=== PATIENT | female | born 1995 | race African-American/Black ===

== ENCOUNTER 2017-02-22 21:35 | Emergency (ER) | payer SELFPAY ==
[2017-02-22 21:37] VITALS: BP 143/78; PULSE 77; RESP 22; TEMP 98.7; O2SAT 97
--- NOTE | 2017-02-22 23:05 | PD ---
HPI Chief Complaint: Laceration/Skin Injury Time Seen by Provider: 23:05 Travel History International Travel<30 days: No Contact w/Intl Traveler<30days: No Traveled to known affect area: No History of Present Illness HPI 21-year-old female with no significant medical history presents to the emergency department for evaluation of a laceration to her left anterior forearm. Patient has been drinking this evening and was at a [employer]. She struck a window that broke, resulting in her laceration. Patient reports minimal pain at the site. Denies any alterations in sensation or limitations in range of motion. Patient has no other symptoms to report. PFSH Past Medical History Medical History: Denies Significant Hx ?: Not Social History Alcohol Use: Yes Tobacco Use: No Substance Use: No Allergies-Medications (Allergen,Severity, Reaction): Coded Allergies: No Known Allergies (Unverified , 02/22/17) Reported Meds & Prescriptions Reported Meds & Active Scripts Active Ibuprofen 600 Mg Tab 600 Mg PO Q8HR PRN Keflex (Cephalexin) 500 Mg Cap 500 Mg PO Q6H 5 Days Review of Systems Except as stated in HPI: all other systems reviewed are Neg Physical Exam Narrative GENERAL: Well-nourished female patient, in no acute distress SKIN: Focused skin assessment warm/dry. 12 cm curvilinear linear laceration on the distal anterior left forearm. Bleeding is controlled..The muscle belly was spared. It appears that the profundus longus tendon is lacerated distally. I am unable to visualize the proximal piece of this. HEAD: Atraumatic. Normocephalic. EYES: Pupils equal and round. No scleral icterus. No injection or drainage. ENT: No nasal bleeding or discharge. Mucous membranes pink and moist. NECK: Trachea midline. No JVD. CARDIOVASCULAR: Regular rate and rhythm. No murmur appreciated. RESPIRATORY: No accessory muscle use. Clear to auscultation. Breath sounds equal bilaterally. GASTROINTESTINAL: Abdomen soft, non-tender, nondistended. Hepatic and splenic margins not palpable. MUSCULOSKELETAL: No obvious deformities. No clubbing. No cyanosis. No edema. 5+ strength equal bilateral extremities. Patient has full flexion and extension of the wrist and digits of the affected extremity. Sensation intact distal affected extremity. Cap refill is within normal limits. NEUROLOGICAL: Awake and alert. No obvious cranial nerve deficits. Motor grossly within normal limits. Normal speech. Data Data Last Documented VS Vital Signs Date Time Temp Pulse Resp B/P Pulse Ox O2 Delivery O2 Flow Rate FiO2 02/22/17 21:37 98.7 77 22 143/78 97 Room Air Orders Forearm (2vws) (02/22/17 ) [facility] Medical Decision Making Medical Screen Exam Complete: Yes Emergency Medical Condition: Yes Medical Record Reviewed: Yes Differential Diagnosis Laceration superficial versus deep versus foreign body versus abrasion versus avulsion Narrative Course 21-year-old female presents to the department for evaluation of a laceration to the left forearm. Patient has no limitations in range of motion of the wrist or digits of the affected extremity. Sensation is intact. This is a relatively superficial laceration when compared to the mechanism of injury and the potential for serious injury in the area that was lacerated. It is approximated without difficulty. Patient is placed in a wrist splint to reduce mobility while the laceration heals. She is encouraged follow-up with hand specialist. She agrees to return immediately with any acute worsening of symptoms. Procedures Procedure Narrative LACERATION LOCATION: Left anterior wrist LENGTH: 12 cm NUMBER OF STITCHES/JEANIE: 7 horizontal mattress, 3 single interrupted REPAIR: The area of the laceration was prepped with Betadine and sterilely draped. The laceration was infiltrated with 1% lidocaine with epinephrine. The wound was copiously irrigated and explored without evidence of foreign body , tendon injury or neurovascular injury. The wound was closed using 4-0 Prolene and 4-0 Ethilon suture this was a [single layer repair. A sterile dressing was applied. The patient was advised to keep the dressing clean and dry. Patient tolerated the procedure well. Diagnosis Primary Impression: Laceration of arm Qualified Code: S41.112A - Laceration of arm, left, initial encounter Referrals: Tomas Clements MD,Jeanine Villanueva MD Primary Care Physician Patient Instructions: Acute Wound Care (ED), General Instructions Departure Forms: Tests/Procedures, Work Release Enter return to work date: February 24, 2017 Additional Instructions: Keep the area clean and dry You may shower Seek hand specialty evaluation Pat dry and apply Polysporin ointment before you apply a nonadherent dressing Sutures are to be removed in 10 days. This can be done at the emergency department or your primary care provider's office Elevate to reduce pain and swelling Return immediately with any acute worsening of symptoms Med/Other Pt SpecificInfo: Prescription(s) given Scripts Ibuprofen 600 Mg [id number] Mg PO Q8HR PRN (PAIN) #30 TAB Ref 0 Prov:Myrna Norton 02/23/17 Cephalexin (Keflex)500 Mg [id number] Mg PO Q6H 5 Days Ref 0 Prov:Myrna Norton 02/23/17 Disposition: 01 DISCHARGE HOME Condition: Stable Myrna Norton February 22, 2017 23:05
--- NOTE | 2017-02-22 23:38 | RADRPT ---
EXAM DATE/TIME: 02/22/2017 23:24 [facility] COMPARISON: No previous studies available for comparison. INDICATIONS : Left distal forearm laceration from hitting a wall. MEDICAL HISTORY : None. SURGICAL HISTORY : None. ENCOUNTER: Initial ACUITY: 1 day PAIN SCORE: 8/10 LOCATION: Left distal Forearm FINDINGS: Two view examination of the left forearm demonstrates no evidence of fracture or dislocation. Bony m ineralization is normal. The soft tissue structures are intact. No radiopaque foreign body. CONCLUSION: Unremarkable examination of the left forearm. Herb Joshi Jr., MD on February 22, 2017 at 23:36 Board Certified Radiologist. This report was verified electronically.
[2017-02-23] MEDS ORDERED: CEPH-460 PO (00:30)
[2017-02-23] MEDS ORDERED: IBUP-232 PO (00:30)
== END 2017-02-23 00:59 | disposition home or self-care (01) ==
LOC: NEPK 21:35
DX: S41.112A Laceration without foreign body of left upper arm, initial encounter (principal); W25.XXXA Contact with sharp glass, initial encounter; Y92.89 Other specified places as the place of occurrence of the external cause
CPT/HCPCS: 12004; 73090

== ENCOUNTER 2017-02-25 13:35 | Emergency (ER) | payer SELFPAY ==
[~2017-02-25] VITALS: Ht 175.3 cm; Wt 68.0 kg
[~2017-02-25 13:35] MED LIST: CEPH-460 PO; IBUP-232 PO
[2017-02-25 13:38] VITALS: BP 113/81; PULSE 58; RESP 18; TEMP 99; O2SAT 100
--- NOTE | 2017-02-25 13:52 | PD ---
Physical Exam Date Seen by Provider: February 25, 2017 Time Seen by Provider: 13:50 Narrative 21 year old female presents to the emergency department for recheck of stitches to her left wrist she had placed on Thursday night. No fevers. Vital signs reviewed. Patient awaiting bed placement. Data Data Last Documented VS Vital Signs Date Time Temp Pulse Resp B/P Pulse Ox O2 Delivery O2 Flow Rate FiO2 02/25/17 13:38 99.0 58 18 113/81 100 MDM Supervised Visit with KEENAN: Yesenia Klein February 25, 2017 13:52
[2017-02-25] MEDS ORDERED: IBUP800T23 PO (14:10)
[2017-02-25] MEDS ORDERED: CEPH-460 PO (14:10)
--- NOTE | 2017-02-25 14:12 | PD ---
HPI Chief Complaint: Skin Problem Time Seen by Provider: 14:06 Travel History International Travel<30 days: No Contact w/Intl Traveler<30days: No History of Present Illness HPI 21-year-old female presents to emergency department requesting stitches and laceration to her left wrist be rechecked. She punched a glass window on Thursday and was here for laceration repair. She reports pain and swelling to the wrist. She says she inks a stitch came out and there is an area of the laceration that is a little more open than other areas. Reports minimal amount of bright red drainage from the laceration site. Has been using Neosporin to the site. Denies fever, vomiting. Denies paresthesias, loss of sensation to the affected extremity. Has been taking Tylenol with minimal relief of symptoms. Has not taken any medications or tried any treatments to alleviate her symptoms. No known allergies. Has no other medical complaints. No other modifying factors or associated signs and symptoms. PFSH Past Medical History Diminished Hearing: No Social History Alcohol Use: Yes Tobacco Use: No Substance Use: No Allergies-Medications (Allergen,Severity, Reaction): Coded Allergies: No Known Allergies (Unverified , 02/25/17) Reported Meds & Prescriptions Reported Meds & Active Scripts Active Ibuprofen 800 Mg Tab 800 Mg PO Q6HR PRN Keflex (Cephalexin) 500 Mg Cap 500 Mg PO Q6H 7 Days Ibuprofen 600 Mg Tab 600 Mg PO Q8HR PRN Keflex (Cephalexin) 500 Mg Cap 500 Mg PO Q6H 5 Days Review of Systems Except as stated in HPI: all other systems reviewed are Neg Physical Exam Narrative GENERAL: Well-nourished, well-developed female patient, in no acute distress; afebrile, nontoxic-appearing SKIN: Warm and dry. Left anterior wrist with L-shaped laceration that is well approximated with sutures intact; there is very minimal erythema surrounding the laceration site; the wrist is mildly edematous; without drainage. Left upper extremity supple and non-tense with 2+ radial pulses and sensory intact. HEAD: Atraumatic. Normocephalic. EYES: Pupils equal and round. No scleral icterus. No injection or drainage. ENT: Mucosa pink and moist. Airway patent. NECK: Trachea midline. CARDIOVASCULAR: Regular rate. RESPIRATORY: No accessory muscle use. GASTROINTESTINAL: Flat. MUSCULOSKELETAL: No obvious deformities. No clubbing. No cyanosis. No edema. NEUROLOGICAL: Awake and alert. Oriented 3. No obvious cranial nerve deficits. Motor grossly within normal limits. Normal speech. PSYCHIATRIC: Appropriate mood and affect; insight and judgment normal. Data Data Last Documented VS Vital Signs Date Time Temp Pulse Resp B/P Pulse Ox O2 Delivery O2 Flow Rate FiO2 02/25/17 13:38 99.0 58 18 113/81 100 MDM Medical Decision Making Medical Screen Exam Complete: Yes Emergency Medical Condition: Yes Medical Record Reviewed: Yes Differential Diagnosis Wound recheck, suture recheck, wound infection Narrative Course 21-year-old female presents for recheck of her laceration to left wrist. She was here on Thursday and the laceration was repaired. Sutures are intact and the wound is well approximated. There is very minimal erythema surrounding the laceration site, most likely consistent with the wound and healing. No drainage. The wrist is with minimal edema. I did review the patient's medical records and she was prescribed Keflex and ibuprofen. She did not fill the prescriptions and does not know what she did with them. I will re-prescribe Keflex and ibuprofen. Instructed patient to fill the prescriptions. Keflex and ibuprofen prescribed for home. Patient verbalizes understanding and agreement with treatment plan. Patient is medically cleared and stable for discharge. Discussed reasons to return to the emergency department. Instructed patient to follow up with primary care provider. Patient agrees with treatment plan. The patients vital signs are stable and the patient is stable for outpatient follow-up and treatment. Patient discharged home, stable and in no acute distress. Diagnosis Primary Impression: Encounter for wound re-check Referrals: Primary Care Physician Patient Instructions: Acute Wound Care (ED), Care For Your Stitches (ED), General Instructions, Laceration (ED) Departure Forms: Tests/Procedures, Work Release Enter return to work date: March 02, 2017 Additional Instructions: Keep area clean and dry Refer to the discharge instructions for Care for your stitches Limit left wrist activity to decrease risk of sutures coming undone done; use sling for support and to decrease activity Ibuprofen or Tylenol as directed and as needed for pain and inflammation Ice pack to area as needed to decrease pain Return to the emergency department in 7-10 days from injury for suture removal Follow up with primary care provider Return to the emergency department immediately with worsening of symptoms, particularly if reddened streaks up or down the affected extremity from the suture site, fever, numbness/tingling in the affected extremity, loss of sensation in the affected extremity, severe swelling of the affected Med/Other Pt SpecificInfo: Prescription(s) given Scripts Ibuprofen 800 Mg [id number] Mg PO Q6HR PRN (PAIN) #30 TAB Ref 0 Prov:Alexia Handley 02/25/17 Cephalexin (Keflex)500 Mg [id number] Mg PO Q6H 7 Days Ref 0 Prov:Alexia Handley 02/25/17 Disposition: 01 DISCHARGE HOME Condition: Stable Alexia Handley February 25, 2017 14:12
== END 2017-02-25 14:22 | disposition home or self-care (01) ==
LOC: NEPK 13:35
DX: S61.512D Laceration without foreign body of left wrist, subsequent encounter (principal); W25.XXXD Contact with sharp glass, subsequent encounter
CPT/HCPCS: 99282

== ENCOUNTER 2017-03-09 09:49 | Emergency (ER) | payer SELFPAY ==
[~2017-03-09 09:49] MED LIST changes: +IBUP800T23 PO
[2017-03-09 09:50] VITALS: BP 121/70; PULSE 62; RESP 14; TEMP 98.2; O2SAT 100
--- NOTE | 2017-03-09 10:35 | PD ---
HPI Chief Complaint: Wound/Suture/Staple Re-Check Time Seen by Provider: 10:20 Travel History International Travel<30 days: No Contact w/Intl Traveler<30days: No Traveled to known affect area: No History of Present Illness HPI 21-year-old female presents emergency department for suture removal. Patient sustained a laceration to her left wrist 15 days ago and was sutured here in the emergency department. She denies any purulent drainage from the wound, pain or erythema. PFSH Past Medical History Medical History: Denies Significant Hx Diminished Hearing: No Social History Alcohol Use: Yes Tobacco Use: No Substance Use: No Allergies-Medications (Allergen,Severity, Reaction): Coded Allergies: No Known Allergies (Unverified , 02/25/17) Reported Meds & Prescriptions Reported Meds & Active Scripts Active Ibuprofen 800 Mg Tab 800 Mg PO Q6HR PRN Keflex (Cephalexin) 500 Mg Cap 500 Mg PO Q6H 7 Days Ibuprofen 600 Mg Tab 600 Mg PO Q8HR PRN Keflex (Cephalexin) 500 Mg Cap 500 Mg PO Q6H 5 Days Review of Systems Except as stated in HPI: all other systems reviewed are Neg Physical Exam Narrative GENERAL: Well-nourished, well-developed patient. SKIN: Focused skin assessment warm/dry. Left wrist 8 sutures present. Wound well approximated and healing. No erythema or swelling. No lymphangitis. HEAD: Normocephalic. EYES: No scleral icterus. No injection or drainage. NECK: Supple, trachea midline. No JVD or lymphadenopathy. CARDIOVASCULAR: Regular rate and rhythm without murmurs, gallops, or rubs. RESPIRATORY: Breath sounds equal bilaterally. No accessory muscle use. GASTROINTESTINAL: Abdomen soft, non-tender, nondistended. MUSCULOSKELETAL: No cyanosis, or edema. BACK: Nontender without obvious deformity. No CVA tenderness. Data Data Last Documented VS Vital Signs Date Time Temp Pulse Resp B/P Pulse Ox O2 Delivery O2 Flow Rate FiO2 03/09/17 09:50 98.2 62 14 121/70 100 MDM Medical Decision Making Medical Screen Exam Complete: Yes Emergency Medical Condition: Yes Differential Diagnosis Suture removal, wound check, wound infection Narrative Course 21-year-old female presents emergency department for suture removal of her left wrist. She sustained a laceration to the left wrist 15 days ago and was sutured here in emergency department. She denies any complaints of pain, drainage from wound, fever, chills. Diagnosis Primary Impression: Visit for suture removal Referrals: Primary Care Physician Patient Instructions: Acute Wound Care (ED), General Instructions Departure Forms: Tests/Procedures, Work Release Enter return to work date: March 10, 2017 Disposition: 01 DISCHARGE HOME Condition: Stable Silva Lloyd March 09, 2017 10:35
== END 2017-03-09 10:47 | disposition home or self-care (01) ==
LOC: NEPK 09:49
DX: Z48.02 Encounter for removal of sutures (principal)
CPT/HCPCS: 99281